=== PATIENT | male | born 1965 | race Caucasian/White ===

== ENCOUNTER 2016-08-02 18:57 | Emergency (ER) | payer MEDICAID ==
[~2016-08-02] VITALS: Ht 175.3 cm; Wt 68.2 kg
[2016-08-02] MEDS ORDERED: TRAM50TA4 PO (19:28)
[2016-08-02 23:10] VITALS: BP 124/77
[2016-08-02] MEDS ORDERED: IBUPROFEN 600 MG TABLET PO ONE (23:15)
== END 2016-08-03 00:29 | disposition home or self-care (01) ==
LOC: EMS 19:01
DX: S82.832A Other fracture of upper and lower end of left fibula, initial encounter for closed fracture (principal); F17.200 Nicotine dependence, unspecified, uncomplicated; Z88.6 Allergy status to analgesic agent; Y93.89 Activity, other specified; Y92.9 Unspecified place or not applicable; Y99.9 Unspecified external cause status
CPT/HCPCS: 29505; 99284